=== PATIENT | female | born 1950 ===

== ENCOUNTER 2016-09-30 13:47 | Emergency (ER) | payer OTHER, MEDICAID ==
[2016-09-30 14:58] VITALS: PULSE 88
--- NOTE | 2016-09-30 16:11 | C.PDOC ---
History Of Present Illness Pt c/o right middle finger pain and swelling. Time Seen by Provider: 09/30/16 15:03 Chief Complaint (Nursing): Finger,Hand,&Wrist History Per: Patient Onset/Duration Of Symptoms: Days (1) Current Symptoms Are (Timing): Still Present Quality: "Pain" Severity: Moderate Exacerbating Factor(s): Strenuous Use Of Affected Area Additional History Per: Prior Records Past Medical History Reviewed: Historical Data, Nursing Documentation, Vital Signs Vital Signs: Last Vital Signs Temp 98.4 F 09/30/16 14:56 Pulse 88 09/30/16 14:56 Resp 17 09/30/16 14:56 BP 127/76 09/30/16 14:56 Pulse Ox 100 09/30/16 14:56 - Medical History PMH: Anxiety, HTN, Hyperlipidemia Family History: States: Unknown Family Hx - Social History Hx Alcohol Use: No Hx Substance Use: No Review Of Systems Except As Marked, All Systems Reviewed And Found Negative. Constitutional: Negative for: Fever, Weakness Musculoskeletal: Positive for: Hand Pain (right middle finger). Negative for: Neck Pain Skin: Positive for: Bruising Neurological: Negative for: Weakness, Numbness Physical Exam - Physical Exam Appears: Non-toxic, No Acute Distress Skin: Warm, Dry Head: Atraumatic, Normacephalic Eye(s): bilateral: Normal Inspection, PERRL, EOMI Neck: Normal ROM, Supple Extremity: Normal ROM, Capillary Refill (wnl), No Deformity, Swelling (of right middle finger), Other (ecchemoses on right middle finger, no erythema or warmth. ) Pulses: Right Radial: Normal Neurological/Psych: Oriented x3, Normal Motor, Normal Sensation ED Course And Treatment O2 Sat by Pulse Oximetry: 100 Pulse Ox Interpretation: Normal - Other Rad Right middle finger x-rays X-Ray: Interpreted by Me, Viewed By Me Interpretation: DJD. No acute fx or dislocation. Progress Note: Finger splint was applied to right middle finger by emergency medical technician/driver. Reassessment Condition: Improved Disposition Counseled Patient/Family Regarding: Studies Performed, Diagnosis, Need For Followup - Disposition Referrals: Jovanny Olguin MD [Medical Doctor] - Disposition: HOME/ ROUTINE Disposition Time: 16:13 Condition: IMPROVED Additional Instructions: Keep your finger in the splint provided until fully healed. Follow up with your doctor. Return to the ER if you develop redness, warmth, fever, worsening of symptoms or if you have any other concerns. Prescriptions: Naproxen [Naprosyn Tab] 375 mg PO BID PRN #20 tab PRN Reason: Pain, Moderate (4-7) Instructions: Finger Sprain (ED) Forms: [employer] (Burkinan) Print Language: UKRAINIAN - Clinical Impression Clinical Impression: Swelling of right middle finger
[2016-09-30 16:22] VITALS: BP 118/74; RESP 18; TEMP 98.7; O2SAT 99
--- NOTE | 2016-09-30 17:09 | RAD ---
PROCEDURE: Right middle finger radiographs. HISTORY: Pain, ecchymoses COMPARISON: None available. FINDINGS: RIGHT MIDDLE FINGER: No acute displaced fracture involving the right 3rd digit. Region of sclerosis evident involving the volar proximal aspect of the distal 3rd phalanx. Remainder of the right hand (as seen on the AP view) grossly unremarkable. JOINTS: No dislocation. SOFT TISSUES: Unremarkable. No evidence of radiopaque foreign body. OTHER FINDINGS: None. IMPRESSION: No acute displaced fracture. Nonspecific sclerosis involving the volar proximal aspect of the distal 3rd phalanx.
== END 2016-09-30 16:21 | disposition home or self-care (01) ==
LOC: C.ER 13:47
DX: M79.89 Other specified soft tissue disorders (principal)